=== PATIENT | male | born 2000 | race Caucasian/White ===

== ENCOUNTER 2020-10-09 15:27 | Outpatient (CLI) | payer OTHER, SELFPAY | END 2020-10-09 15:28 | disposition home or self-care (01) | LOC: ANHLAB 15:53 | PROVIDERS: PCP Family Medicine; Visit Provider Nurse Practitioner Family | DX: J45.909 Unspecified asthma, uncomplicated (principal) | CPT/HCPCS: 36415; 82785; 86003 ==

== ENCOUNTER → 2021-03-08 00:35 | Outpatient (CLI) | payer OTHER, SELFPAY ==
[2021-03-08 18:00] LABS: SARS-CoV-2 RNA PCR Negative (Negative)
== END ==
PROVIDERS: PCP Family Medicine; Visit Provider Internal Medicine Gastroenterology
DX: Z01.812 Encounter for preprocedural laboratory examination (principal); Z20.822 Contact with and (suspected) exposure to COVID-19
CPT/HCPCS: C9803; U0003; U0005

== ENCOUNTER 2021-03-12 02:23 | Day surgery (SDC) | payer OTHER, SELFPAY ==
[2021-03-07 15:52] VITALS: BMI 26.4
[2021-03-12 08:29] VITALS: BP 141/100; PULSE 81; RESP 16; TEMP 37; O2SAT 98
[2021-03-12] MEDS: LACTATED RINGERS 1,000 ML 150 ML IV CONT (08:34)
--- NOTE | 2021-03-12 08:58 | P.PNAN_ITS ---
Anes - Initial Pre Proc Eval Procedure: Operation Date: 03/12/21 09:30 Proposed Procedures p Esophagogastroduodenoscopy - Cameron Gastelum MD Date/Time: 03/12/21 08:58 Surgeon: Cameron Gastelum MD Pre Op Diagnosis: dysphagia Patient Data Age: 20 Gender: M Height: 1.85 m Weight: 90.8 kg Last Vital Signs Temp 98.6 F 03/12/21 08:29 Pulse 81 03/12/21 08:29 Resp 16 03/12/21 08:29 BP 141/100 H 03/12/21 08:29 Pulse Ox 98 03/12/21 08:29 Allergies Allergy/AdvReac Type Severity Reaction Status Date / Time No Known Allergies Allergy Unknown Verified 03/12/21 08:28 Home Medications Medication Instructions Recorded Confirmed Type budesonide-formoterol HFA 160 2 puff INHALATION Q12H #10.2 g 03/07/20 03/07/21 Rx mcg-4.5 mcg/actuation aerosol inhaler inhalational spacing device #1 ea 03/07/20 02/12/21 Rx albuterol sulfate 90 mcg/actuation 1 inh INHALATION Q2-4H PRN #18 gm 02/12/21 03/07/21 Rx aerosol inhaler omeprazole 40 mg capsule,delayed 40 mg PO DAILY #30 cap 02/12/21 03/07/21 Rx release Patient hx anesthesia problems: none Family hx anesthesia problems: none Results Review: All pre-operative results and documents have been reviewed as part of the pre-operative evaluation. [facility] Past Medical History Medical History Acute eczema No pertinent family history Surgical History Surgical History No significant past surgical history Social History Social History Smoking status: Never smoker Alcohol intake: current Substance use: never Substance use type: does not use Living arrangements: with family Spiritual care concerns: No Anes - Eval Final PreProcedure Day of Procedure 03/12/21 08:58 Patient weight: normal Heart: regular rate and rhythm Lungs: clear to auscultation Airway: Mallampati scale class II Neurological: alert and oriented Last oral intake: >/= 8 hours ASA classification: II Emergent: no Anesthetic plan: proceed Anesthesia type and monitoring: general GIVS and standard monitoring Results Review: All pre-operative results and documents have been reviewed as part of the pre-operative evaluation. Informed Consent: The patient's anesthetic plan and its attendant risks and benefits were discussed with the patient/family/POA. Questions were solicited and answers provided to the satisfaction of the patient/family/POA.
--- NOTE | 2021-03-12 09:01 | PM.HPGS ---
History of Present Illness History of Present Illness Consent: Risks, benefits, and alternatives have been discussed and questions answered. Patient agrees to proceed with procedure. Chief complaint: dysphagia Narrative: Guille Roman is a 20 year old male with gerd better with omeprazole that started about a month ago but also dysphagia feeling food getting stuck sometimes in chest, never had EGD. He also has h/o asthma and chronic gerd for years. Review of Systems Constitutional: Constitutional: Denies headache(s) and Denies weakness Eyes: Eyes: Denies blurry vision ENT: Reports Normal hearing present, Denies headache(s) and Denies neck pain Cardiovascular: Cardiovascular: Denies chest pain and Denies dyspnea Respiratory: Respiratory: Denies dyspnea Gastrointestinal: Gastrointestinal: Reports no additional gastrointestinal complaints Genitourinary: Genitourinary: Denies dysuria Musculoskeletal: Musculoskeletal: Denies neck pain Integumentary/Breasts: Skin/Breast: Denies dry skin Neurologic: Reports Normal hearing present, Denies headache(s) and Denies weakness Psychiatric: Psychiatric: Denies anxiety Endocrine: Endocrine: Denies change in body appearance Hematologic/Lymphatic: Hematologic/Lymphatic: Denies easy bleeding Allergic/Immunologic: Allergic/Immunologic: Denies urticaria PMF Past Medical History Medical History (Updated 03/12/21 @ 09:02 by Cameron Gastelum MD) Acute eczema Dysphagia No pertinent family history Surgical History Surgical History No significant past surgical history Social History Social History Smoking status: Never smoker Alcohol intake: current Substance use: never Substance use type: does not use Living arrangements: with family Spiritual care concerns: No Meds Home Medications and Allergies Home Medications Medication Instructions Recorded Confirmed Type budesonide-formoterol HFA 160 2 puff INHALATION Q12H #10.2 g 03/07/20 03/07/21 Rx mcg-4.5 mcg/actuation aerosol inhaler inhalational spacing device #1 ea 03/07/20 02/12/21 Rx albuterol sulfate 90 mcg/actuation 1 inh INHALATION Q2-4H PRN #18 gm 02/12/21 03/07/21 Rx aerosol inhaler omeprazole 40 mg capsule,delayed 40 mg PO DAILY #30 cap 02/12/21 03/07/21 Rx release Allergies Allergy/AdvReac Type Severity Reaction Status Date / Time No Known Allergies Allergy Unknown Verified 03/12/21 08:28 Vital Signs Vital Signs - 24 hr 03/12/21 08:29 Temperature 98.6 F Pulse Rate 81 Respiratory Rate 16 Blood Pressure 141/100 H Pulse Oximetry 98 Exam Const: General: comfortable and no acute distress HENMT: General nose exam: Normal nares present Eyes: General: appearance normal, both eyes and all related structures Neck: Neck: no JVD Resp: Auscultation: clear to auscultation bilaterally Cardio: Rate: regular rate Rhythm: regular rhythm GI: Inspection: non-distended GI Palp: Yes Soft to palpation Skin: General skin exam: normal color Neuro: General: gait normal Speech: normal speech Extrem: General: normal to inspection Psych: Mental Status: mental status grossly normal Assessment and Plan Assessment and plan (1) Dysphagia: Code(s): R13.10 - Dysphagia, unspecified Status: Acute Assessment and Plan: wonder if he could have EoE (long history of upper gi issues and also asthma)- egd with bx, better with ppi (2) Asthma: Code(s): J45.909 - Unspecified asthma, uncomplicated Status: Acute
[2021-03-12] MEDS: BENZOCAINE (*SP) 60 ML SPRAY CAN (HURRICAINE) 1 SPRAY MUCOUS MEM (09:12)
[2021-03-12 09:19] VITALS: BP 110/70; PULSE 69; RESP 13; O2SAT 97
[2021-03-12 09:29] VITALS: BP 119/75; PULSE 76; RESP 16; O2SAT 99
[2021-03-12 09:39] VITALS: BP 122/81; PULSE 72; RESP 25; O2SAT 99
== END 2021-03-12 09:58 | disposition home or self-care (01) ==
PROVIDERS: PCP Family Medicine; Visit Provider Internal Medicine Gastroenterology
PROC: 0DJ08ZZ Inspection of Upper Intestinal Tract, Via Natural or Artificial Opening Endoscopic (ICD-10-PCS; CPT 43235; principal; 2021-03-12 09:30)
DX: R13.10 Dysphagia, unspecified (principal); K21.9 Gastro-esophageal reflux disease without esophagitis; K20.90 Esophagitis, unspecified without bleeding; J45.909 Unspecified asthma, uncomplicated
CPT/HCPCS: 43239; 88305; C9803; J2704; J7120; U0003; U0005